=== PATIENT | female | born 1985 | race Caucasian/White ===

== ENCOUNTER 2023-01-15 01:14 | Day surgery (SDC) | payer OTHER, SELFPAY ==
[2023-01-01 15:10] VITALS: BMI 21.1
--- NOTE | 2023-01-01 15:16 | PC.NURSE ---
Report to the Outpatient Waiting Room, entrance under the green pavilion located off [facility], at time 0600 on date 01/15/23. Planned Procedure Time: 0730. Time changes happen often and if your time is changed the preop area will call you the afternoon before. - You and your visitor will be asked to self-screen and do not enter if you have any COVID symptoms. - Only one visitor is requested with a max of two and NO children visitors are allowed at this time. - The patient visitor may be requested to leave or wait in car when not with patient due to distancing restrictions. - A mask is optional within the hospital at this time. Patients may have clear liquids (water, carbonated beverages, clear teas, apple juice) until 3 hours prior to surgery with a maximum of 20 ounces. - No food from midnight until time of surgery Take the following medications with a SIP of water the morning of surgery: SYNTHROID DO NOT STOP ANY OF YOUR OTHER PRESCRIPTION MEDICATIONS PRIOR TO SURGERY ?EXCEPT THE FOLLOWING Medications to discontinue per physician: VITAMINS/SUPPLEMENTS Date to take last dose: 01/11/23 Please no make-up, nail faroese, hairspray, perfume, deodorant, or body powder the day of surgery. No jewelry (including any body piercings) or valuables the day of surgery, leave them at home. Please take a shower or bath the night before, or the morning of, surgery with an antibacterial soap. Wear comfortable, loose fitting clothing. - Jewelry must be removed prior to entering the operating room. Rings and piercings that are not removed may be cut off. - The hospital will not accept responsibility for valuables. - Please leave all valuables, including medications, at home the day of surgery. If you are going home after surgery, a licensed delivery driver assistant must drive you home. - NO public transportation without another adult if you receive anesthesia. - We recommend that an adult stay with you for 24 hours following discharge. - We also recommend that you do not drive, make important decision, drink alcoholic beverages, or take any drugs that were not prescribed by your health care provider for at least 24 hours after your discharge time. Follow any additional instructions given to you from your surgeon. If you or anyone in your household have experienced Covid symptoms in the past week, please notify your surgeon or the nurse liaison at the phone number below for possible testing. Telephone instructions given to PT - ROMA INGRAM and asked if any additional questions and then verbalized understanding. Patient advised to call surgeon office or pre surgery nurse liaison [phone] if any additional questions.
[2023-01-15] VITALS (12 sets, daily range): BP systolic 104–121; BP diastolic 52–84; PULSE 52–81; RESP 10–16; TEMP 36.3–36.6; O2SAT 98–100
[2023-01-15 06:55] LABS: Urine Cotinine NEGATIVE
[2023-01-15] MEDS: LACTATED RINGERS 1,000 ML 30 ML IV CONT ×2 (06:55→09:43)
--- NOTE | 2023-01-15 06:59 | WPDHPUPDATE1 ---
History and Physical Update Update Date/Time: 01/15/23 06:59 History and Physical has been reviewed, including an updated exam of the patient. There are NO changes in the patient's condition. Risks, benefits, and alternatives have been discussed and questions answered. Patient agrees to proceed with procedure.
--- NOTE | 2023-01-15 07:17 | P.PNAN_ITS ---
Anes - Initial Pre Proc Eval Procedure: Operation Date: 01/15/23 07:30 Proposed Procedures p Bilateral Breast Augmentation, - Mikey Vance MD s Bilateral Breast Mastopexy - Mikey Vance MD Date/Time: 01/15/23 07:17 Surgeon: Mikey Vance MD Pre Op Diagnosis: micromastia, breast ptosis Patient Data Age: 37 Gender: F Height: 1.65 m Weight: 60 kg Last Vital Signs Temp 36.6 C 01/15/23 06:25 Pulse 52 L 01/15/23 06:25 Resp 16 01/15/23 06:25 BP 104/70 01/15/23 06:25 Pulse Ox 100 01/15/23 06:25 O2 Del Method Room Air 01/15/23 06:25 Allergies Allergy/AdvReac Type Severity Reaction Status Date / Time peanut Allergy Anaphylaxis Verified 01/15/23 06:41 Home Medications Medication Instructions Recorded Confirmed Type estradiol 1 mg tablet 1 mg PO DAILY 01/01/23 01/15/23 History inulin 2 gram chewable tablet 2 g PO DAILY 01/01/23 01/15/23 History (Fiber Gummies) levothyroxine 112 mcg tablet 112 mcg PO DAILY 01/01/23 01/15/23 History (Synthroid) multivitamin 1 tablet PO DAILY 01/01/23 01/15/23 History vitamin B complex 1 tablet PO DAILY 01/01/23 01/15/23 History Laboratory Tests 01/15/23 06:28 Cotinine Negative Patient hx anesthesia problems: none Family hx anesthesia problems: none Results Review: All pre-operative results and documents have been reviewed as part of the pre- operative evaluation. [facility] Social History Social History Smoking status: Never smoker Alcohol intake: current Drinks per week: 2 Substance use: never Substance use type: does not use Living arrangements: with family Additional living arrangements comments: CHILDREN Spiritual care concerns: No Anes - Eval Final PreProcedure Day of Procedure 01/15/23 07:17 Patient weight: normal Heart: regular rate and rhythm Lungs: clear to auscultation Airway: Mallampati scale class II Neurological: alert and oriented Last oral intake: >/= 8 hours ASA classification: II Emergent: no Anesthetic plan: proceed Anesthesia type and monitoring: general LMA and standard monitoring Results Review: All pre-operative results and documents have been reviewed as part of the pre- operative evaluation. Informed Consent: The patient's anesthetic plan and its attendant risks and benefits were discussed with the patient/family/POA. Questions were solicited and answers provided to the satisfaction of the patient/family/POA.
[2023-01-15] MEDS: SCOPOLAMINE 1.5 MG PATCH TRANSDERM (07:26)
--- NOTE | 2023-01-15 07:28 | W.PM.PROC2 ---
Procedure Note - Detailed Date of Procedure 01/15/23 Pre-op Diagnosis micromastia, breast ptosis Post-op Diagnosis Same Procedure Performed Bilateral augmentation mastopexy Surgeon Mikey Vance MD Anesthesia General Findings Bilateral superior pedicle circumvertical mastopexy Bilateral Dorian Millan SoftTouch 450cc Right - REF# SSF-[id number] SN [id number] Left - REF# [id number] SN [id number] Description of Procedure She is here today for bilateral breast augmentation mastopexy. Previously and again today the risks, benefits, alternatives were discussed in extensive detail. I wanted her to be very realistic about the risks involved as well as expectations. We discussed aftercare and what to monitor for. Made sure answered all of her questions to her satisfaction today and consent was obtained. Marked in the preoperative holding area with their verification. The patient was taken to the operating room placed supine on the operating table. Anesthesia was provided by anesthesiology. A surgical time-out was taken. We cleansed the skin and 1% lidocaine and 0.25% Marcaine with epinephrine was used anesthetize as a field block. She was prepped and draped in a standard sterile fashion. Tegaderm nipple Cooper were placed. A 15 blade used to make an incision at the inframammary fold. Dissection was continued until the chest wall as identified. I incised the pectoralis major along its inferior border and completely released the inferior border leaving the medial border intact. I created a subpectoral pocket in the appropriate dimensions based on our preoperative planning for the implant. I then copiously irrigated with saline solution and verified a strict hemostasis. Next the use a triple antibiotic and Betadine containing solution to irrigate the pocket. I washed my gloves with the triple antibiotic and Betadine solution. We washed the implant immediately upon opening it with this solution and only opened it when we needed it. I used implant funnel and no-touch technique. The implant was introduced into the pocket using the funnel. Having verified positioning of the implant this was closed using 2-0 PDS. I tailor tacked the breast into position. Placed her in a sitting position. Verified the nipple-areolar location based on preoperative planning as well as intraoperative observations and measurements in full agreement. She was placed supine. I de-epithelialized the pedicle. I then removed the inferior central portion of the breast need making sure the implant was well protected. I elevated medial and lateral tissue flaps as well for planned closure. I closed along the IMF with 2-0 Stratafix. Along the vertical with 2-0 PDS. I closed around the areola with 3-0 strata fix. 3-0 Monocryl along the vertical. 3-0 Stratafix along the IMF. I finally closed everything with running subcuticular 4-0 Monocryl and tissue glue. Fluffs and surgical bra were placed. Estimated Blood Loss 75 Drains No Packing No Pathology None sent Complications No immediate complications Condition Stable Disposition PACU
[2023-01-15] MEDS: TRANEXAMIC ACID 1,000MG/ISO100 1,000 MG/100 ML BAG 200 MG IVPB (07:33)
[2023-01-15] MEDS: NACL 0.9% IRRIG POUR BOTTLE 900 ML, GENTAMICIN SULFATE INJ 160 MG, ceFAZolin 2 GM, POVI... IRRIGATION (07:33)
[2023-01-15] MEDS: BUPivacaine HCL 0.25% PF 30 ML VIAL INFILTRATE (07:33)
[2023-01-15] MEDS: ceFAZolin 2 GM/D5W 50 ML 2 GM/50 ML BAG IVPB (07:33)
[2023-01-15] MEDS: LIDO 1%/EPINEPHRINE 1:100,000 50 ML VIAL 30 ML INFILTRATE (07:33)
[2023-01-15] MEDS: fentaNYL CITRATE INJ (*CRX) 100 MCG/2 ML VIAL 25 MCG IV PUSH ×7 (10:13→11:27)
[2023-01-15] MEDS: oxyCODONE HCL (*CRX) 5 MG TAB IR PO (11:09)
--- NOTE | 2023-01-15 11:54 | SUR.PHASEII ---
late entry. pt arrived to out patient by marcos quinn and put in the chair by cheyenne. pt given crackers and water to consume so her pain pill doesn't cause nausea. this nurse gave pt her pain pill and some fentanyl for pain pt was placed on a pulse ox. this nurse came back to check on pt and she said the pain medicine was not helping pt then gave more pain medicine per mar. this nurse came back to check on pt and this nurse gave pt another pain medicine per dec. this nurse checked on later and her pain was more controlled, refused more pain medicine and pt said that she wanted to go home. this nurse said ok and that I needed to check on pt incisions before she leaves. that is when the pt became upset when she saw her breasts and said she wanted them bigger. that is when the pt said she wanted something to relax her and to talk to dr paulino. this nurse come out and spoke with sales department manager jevon and she contacted dr jackson at that time 1145. and this nurse called dr clifton and informed him about the situation and he ordered valume 2.5mg and another oxycodone if needed. manager escoto went into the room with the pt and she requested a new nurse. now nurse escoto is taking over care. dr clifton came to bedside to talk to pt at 1206. dr arnold will come to bedside when he is done with the case he is in.
[2023-01-15] MEDS: diazePAM INJ (*CRX) 10 MG/2 ML SYRINGE 2.5 MG IV PUSH (11:55)
[2023-01-15] MEDS: HYDROmorphone HCL INJ (*CRX) 1 MG/ML SYR IV PUSH (12:16)
--- NOTE | 2023-01-15 12:22 | SUR.PHASEII ---
pt is being very aggressive to nurse jevon and yelling at her. nurse jevon asked her to please bring her voice down that she is being disrespectful to the other patients. nurse escoto is keeping close contact with dr clifton about the situation. screaming can be heard from outside of the room.
--- NOTE | 2023-01-15 13:06 | SUR.PHASEII ---
1240 called to operating room where Dr Vance is working to update and request per patient something be called in for her anxiety, he said he would as soon as case was done This information was given to patient and family. Patient states wants to go home now. [address] Maravilla ok to discharge patient to home
== END 2023-01-15 12:55 | disposition home or self-care (01) ==
PROVIDERS: Visit Provider Surgery Plastic and Reconstructive Surgery
PROC: (CPT 19316; principal; 2023-01-15 07:30)
PROC: (CPT 19316; 2023-01-15 07:30)
DX: Z41.1 Encounter for cosmetic surgery (principal); N64.82 Hypoplasia of breast; N64.81 Ptosis of breast
CPT/HCPCS: 19316; 19325; 80307; A9270; J0690; J1100; J1170; J1580; J2250; J2405; J2704; J3010; J3360; J7120